=== PATIENT | male | born 1980 | race Caucasian/White ===

== ENCOUNTER 2019-02-05 13:29 | Emergency (ER) | payer MEDICAID ==
[~2019-02-05] VITALS: Ht 175.3 cm; Wt 80.0 kg
[2019-02-05 13:40] VITALS: BP 138/96
== END 2019-02-05 15:57 | disposition home or self-care (01) ==
LOC: ER 13:31
DX: S30.851A Superficial foreign body of abdominal wall, initial encounter (principal); Z60.2 Problems related to living alone; W45.8XXA Other foreign body or object entering through skin, initial encounter; Y93.89 Activity, other specified; Y92.89 Other specified places as the place of occurrence of the external cause; Y99.8 Other external cause status
CPT/HCPCS: 99284

== ENCOUNTER 2019-02-08 12:02 | Emergency (ER) | payer MEDICAID ==
[~2019-02-08] VITALS: Ht 175.3 cm; Wt 81.0 kg
[2019-02-08 12:08] VITALS: BP 118/75
== END 2019-02-08 14:10 | disposition left against medical advice (07) ==
LOC: ER 12:03
DX: M79.604 Pain in right leg (principal); R07.81 Pleurodynia; R51 Headache; R11.0 Nausea; Z53.21 Procedure and treatment not carried out due to patient leaving prior to being seen by health care provider

== ENCOUNTER 2019-08-20 07:06 | Emergency (ER) | payer MEDICAID ==
[~2019-08-20] VITALS: Ht 175.3 cm; Wt 83.0 kg
[2019-08-20 07:08] VITALS: BP 125/83
[2019-08-20] MEDS ORDERED: PENI500T2 PO (07:33)
[2019-08-20] MEDS ORDERED: ACET-3068 PO (07:33)
[2019-08-20] MEDS ORDERED: HYDR-3965 PO (08:10)
== END 2019-08-20 08:14 | disposition home or self-care (01) ==
LOC: ER 07:06
DX: K08.89 Other specified disorders of teeth and supporting structures (principal); G89.18 Other acute postprocedural pain; F17.200 Nicotine dependence, unspecified, uncomplicated; Z60.2 Problems related to living alone; Z88.5 Allergy status to narcotic agent; Z79.2 Long term (current) use of antibiotics; Z79.899 Other long term (current) drug therapy
CPT/HCPCS: 99283

== ENCOUNTER 2019-12-04 17:05 | Emergency (ER) | payer MEDICAID ==
[~2019-12-04] VITALS: Ht 175.3 cm; Wt 87.0 kg
[2019-12-04 17:07] VITALS: BP 138/96
[2019-12-04] MEDS ORDERED: HYDROcodone/acetaminophen 5mg/325mg tablet PO ONE (17:50)
[2019-12-04] MEDS ORDERED: PENI250T2 PO (17:50)
[2019-12-04] MEDS ORDERED: IBUP-1984 PO (17:50)
--- NOTE | 2019-12-04 17:59 | NUR ---
Patient left prior to recieving [place].
== END 2019-12-04 18:01 | disposition home or self-care (01) ==
LOC: ER 17:06
DX: K02.9 Dental caries, unspecified (principal); K04.7 Periapical abscess without sinus; Z60.2 Problems related to living alone; Z88.5 Allergy status to narcotic agent; Z79.2 Long term (current) use of antibiotics; Z79.899 Other long term (current) drug therapy
CPT/HCPCS: 99283

== ENCOUNTER 2020-10-13 13:49 | Emergency (ER) | payer MEDICAID ==
[~2020-10-13] VITALS: Ht 175.3 cm; Wt 86.4 kg
[2020-10-13 14:01] VITALS: BP 138/94
[2020-10-13] MEDS ORDERED: PENI250T2 PO (14:08)
[2020-10-13] MEDS ORDERED: HYDR-3965 PO (14:08)
[2020-10-13] MEDS ORDERED: NAPR-56 PO (14:08)
== END 2020-10-13 14:21 | disposition home or self-care (01) ==
LOC: ER 13:50
DX: K04.7 Periapical abscess without sinus (principal); Z60.2 Problems related to living alone; Z88.5 Allergy status to narcotic agent; Z79.899 Other long term (current) drug therapy
CPT/HCPCS: 99283

== ENCOUNTER 2020-12-07 12:42 | Emergency (ER) | payer MEDICAID ==
[~2020-12-07] VITALS: Ht 175.3 cm; Wt 86.4 kg
[2020-12-07 12:57] VITALS: BP 137/93
[2020-12-07] MEDS ORDERED: PENI500T2 PO (13:57)
[2020-12-07] MEDS ORDERED: HYDR-3965 PO (13:57)
== END 2020-12-07 14:13 | disposition home or self-care (01) ==
LOC: ER 12:42
DX: K04.7 Periapical abscess without sinus (principal); Z88.5 Allergy status to narcotic agent; Z60.2 Problems related to living alone; Z79.899 Other long term (current) drug therapy
CPT/HCPCS: 99283